=== PATIENT | male | born 1965 | race Caucasian/White ===

== ENCOUNTER 2016-07-12 05:10 | Day surgery (SDC) | payer BC ==
[~2016-07-12 05:10] MED LIST: METHOC750B PO; NEUR100 PO; NORCO1 TA2 PO; NORCO1 TAB PO; OXYCOD PO; PERCOCET1 TA2 PO; PREV15 PO; PRIN10 PO; V5 PO
[2016-10-13] MEDS ORDERED: FISH-EPA1000 MG PO (10:49)
== END 2016-07-12 08:31 | disposition home or self-care (01) ==
LOC: SDC 05:10
PROVIDERS: Orthopaedic Surgery Orthopaedic Surgery of the Spine
PROC: 3E0S3BZ Introduction of Anesthetic Agent into Epidural Space, Percutaneous Approach (ICD-10-PCS; 2016-07-12)
PROC: B01B1ZZ Fluoroscopy of Spinal Cord using Low Osmolar Contrast (ICD-10-PCS; 2016-07-12)
PROC: 3E0S33Z Introduction of Anti-inflammatory into Epidural Space, Percutaneous Approach (ICD-10-PCS; principal; 2016-07-12 07:00)
DX: M51.16 Intervertebral disc disorders with radiculopathy, lumbar region (principal); I10 Essential (primary) hypertension; K21.9 Gastro-esophageal reflux disease without esophagitis; Z87.891 Personal history of nicotine dependence; Z98.1 Arthrodesis status; Z79.899 Other long term (current) drug therapy; Z98.890 Other specified postprocedural states
CPT/HCPCS: 77003; J2250; J3010; Q9967